=== PATIENT | female | born 1950 | race Caucasian/White ===

== ENCOUNTER → 2019-03-22 | Outpatient (CLI) | payer MEDICARE ==
--- NOTE | 2019-03-22 17:19 | PCVCIMAG ---
APPROVED REPORT Study performed: 03/22/2019 13:40:02 EXAM: Comprehensive 2D, Doppler, and color-flow Echocardiogram Patient Location: Echo lab Status: routine BSA: 1.89 HR: 103 bpmBP: 118/72 mmHg Rhythm: Sinus Tachycardia Other Information Study Quality: Adequate Risk Factors: Cardiac Risk Factors: Hyperlipidemia Indications Abnormal ECG Pre-Op 2D Dimensions IVSd: 12.97 (7-11mm) LVDd: 29.78 mm PWd: 13.09 (7-11mm)Ascending Ao: 35.70 (22-36mm) LVDs: 22.85 (25-40mm) Left Atrium: 32.37 (27-40mm) Aortic Root: 35.47 mm LV Single Plane 4CH: 56.24 % LV Single Plane 2CH: 52.97 % Biplane EF: 54.6 % Volumes Left Atrial Volume (Systole) Single Plane 4CH: 55.29 mLSingle Plane 2CH: 64.79 mL LA ESV Index: 33.00 mL/m2 Aortic Valve AoV Peak [place].: 1.56 m/s AO Peak Gr.: 9.69 mmHgLVOT Max P.88 mmHg LVOT Max V: 0.98 m/s AI Vmax: 4.51 m/s AI [place]: 2.45 m/s2 AI PHT: 535.00 ms Mitral Valve E/A Ratio: 0.6 MV Decel. Time: 303.25 ms MV E Max [place].: 0.70 m/s MV A [place].: 1.20 m/s IVRT: 128.03 ms Pulmonary Valve PV Peak [place].: 0.98 m/sPV Peak Gr.: 3.86 mmHg Pulmonary Vein P Vein S: 0.33 m/sP Vein A: 0.43 m/s P Vein D: 0.44 m/sP Vein A Dur.: 128.0 msec P Vein S/D Ratio: 0.75 Tricuspid Valve TR Peak [place].: 2.69 m/s TR Peak Gr.: 29.03 mmHg Left Ventricle The left ventricle is normal size. There is normal LV segmental wall motion. Mild concentric left ventricular hypertrophy. Left ventricular systolic function is normal. The left ventricular ejection fraction is within the normal range. LVEF is 55-60%. Mild diastolic dysfunction is present (impaired relaxation pattern). Right Ventricle The right ventricle is normal size. The right ventricular systolic function is normal. Atria The left atrium size is normal. The right atrium size is normal. Aortic Valve The aortic valve is minimally sclerotic Mild aortic regurgitation. There is no aortic valvular stenosis. Mitral Valve The mitral valve is normal in structure. Mild mitral regurgitation. No evidence of mitral valve stenosis. Tricuspid Valve The tricuspid valve is normal in structure. Mild tricuspid regurgitation with PAP of 35 mmHg. Pulmonic Valve The pulmonary valve is normal in structure. Mild pulmonic regurgitation. Great Vessels The aortic root is normal in size. IVC is not well visualized. Pericardium There is no pericardial effusion. There is no pleural effusion. <Conclusion> Left ventricular systolic function is normal. There is normal LV segmental wall motion. LVEF is 55-60%. Mild diastolic dysfunction The aortic valve is minimally sclerotic. Mild aortic regurgitation, no stenosis. The mitral valve is normal in structure. Mild mitral regurgitation. Mild tricuspid regurgitation with pulmonary artery pressure of 35 mmHg. There is no pericardial effusion.
== END | disposition home or self-care (01) ==
LOC: PCVCIMAG 13:42
PROVIDERS: ATTEND Internal Medicine
DX: Z01.818 Encounter for other preprocedural examination (principal); I08.3 Combined rheumatic disorders of mitral, aortic and tricuspid valves; R94.31 Abnormal electrocardiogram [ECG] [EKG]; E66.9 Obesity, unspecified; Z87.891 Personal history of nicotine dependence
CPT/HCPCS: 93306